=== PATIENT | male | born 1955 | race Caucasian/White ===

== ENCOUNTER 2024-10-07 14:56 | Emergency (ER) | payer MEDICARE, BC, OTHER ==
[2024-10-07] MEDS ORDERED: Lidocaine 1% (PF) 30 ML VIAL ONE (15:08)
[2024-10-07] MEDS ORDERED: Bacitracin 1 PK ONE (15:08)
[2024-10-07] MEDS ORDERED: Boostrix 0.5 ML (Tdap) VIAL (>/=7 yrs of age) ONE (15:09)
== END 2024-10-07 15:42 | disposition home or self-care (01) ==
LOC: NAV ERS 14:56
DX: S51.812A Laceration without foreign body of left forearm, initial encounter (principal); I10 Essential (primary) hypertension; E78.00 Pure hypercholesterolemia, unspecified; Z79.899 Other long term (current) drug therapy; W26.0XXA Contact with knife, initial encounter
CPT/HCPCS: 12001; 90471; 90715